=== PATIENT | male | born 1940 | race Caucasian/White ===

== ENCOUNTER → 2024-06-02 | Outpatient (CLI) | payer MEDICARE | END | disposition home or self-care (01) | LOC: LAB 12:55 | PROVIDERS: ATTEND Internal Medicine Cardiovascular Disease | DX: Z95.2 Presence of prosthetic heart valve (principal) | CPT/HCPCS: 36415; 87040 ==

== ENCOUNTER → 2024-08-21 | Outpatient (CLI) | payer MEDICARE ==
[2024-08-21 16:08] LABS: BASOPHILS # (AUTO) 0.03 K/uL (0.00-0.20); BASOPHILS % (AUTO) 0.8 % (0.0-5.0); EOSINOPHILS # (AUTO) 0.26 K/uL (0.00-0.70); HEMATOCRIT 27.6 % (42-54); IMMATURE GRANULOCYTE ABSOLUTE 0.01 K/uL (0-1); LYMPHOCYTES # (AUTO) 0.9 K/uL (1.0-4.8); LYMPHOCYTES % (AUTO) 24.8 % (21.0-51.0); MEAN CORPUSCULAR HEMOGLOBIN 33.9 pg (27.0-33.0); MEAN CORPUSCULAR HGB CONC 30.8 g/dL (32.0-36.0); MONOCYTES # (AUTO) 0.3 K/uL (0.1-1.0); MONOCYTES % (AUTO) 8.6 % (3.0-13.0); NEUTROPHILS # (AUTO) 2.2 K/uL (1.8-7.7); NEUTROPHILS % (AUTO) 58.5 % (40.0-77.0); PLATELET COUNT (AUTO) 171 K/uL (130-400); RED BLOOD CELL COUNT(AUTO) 2.51 MIL/uL (4.50-6.20); RED CELL DISTRIBUTION WIDTH 24.6 % (11.0-15.5); WHITE BLOOD COUNT (AUTO) 3.7 K/uL (4.8-10.8)
[2024-08-21 16:26] LABS: B-TYPE NATRIURETIC PEPTIDE 215 pg/mL (0-100)
[2024-08-21 16:27] LABS: POTASSIUM 4.2 mmol/L (3.5-5.1)
== END | disposition home or self-care (01) ==
LOC: LAB 13:02
PROVIDERS: ATTEND Internal Medicine Cardiovascular Disease
DX: Z01.812 Encounter for preprocedural laboratory examination (principal); Z95.2 Presence of prosthetic heart valve; Z95.0 Presence of cardiac pacemaker
CPT/HCPCS: 36415; 80048; 83880; 85025; 87040

== ENCOUNTER → 2024-11-01 | Outpatient (CLI) | payer MEDICARE ==
--- NOTE | 2024-11-03 13:36 | HMCSR ---
APPROVED REPORT Bilateral Lower Extremity Venous Study for DVT., Venous Competence. Indications Lower Extremity Pain: , Lower Extremity Edema: , i87.1,i87.2 Vein Imaging CFV (R): Pulsatile flow, augmentation and compression. No evidence of DVT. 19.7mm 0.0ms of reflux. SFJ (R): Pulsatile flow, augmentation and compression. No evidence of DVT. FEM (R): Pulsatile flow, augmentation and compression. No evidence of DVT. POP (R): Pulsatile flow, augmentation and compression. No evidence of DVT. DFV (R): Pulsatile flow, augmentation and compression. No evidence of DVT. PTV (R): Pulsatile flow, augmentation and compression. No evidence of DVT. Peroneals (R): Pulsatile flow, augmentation and compression. No evidence of DVT. CFV (L): Pulsatile flow, augmentation and compression. No evidence of DVT. 16.8mm 506ms of reflux. SFJ (L): Pulsatile flow, augmentation and compression. No evidence of DVT. FEM (L): Pulsatile flow, augmentation and compression. No evidence of DVT. POP (L): Pulsatile flow, augmentation and compression. No evidence of DVT. DFV (L): Pulsatile flow, augmentation and compression. No evidence of DVT. PTV (L): Pulsatile flow, augmentation and compression. No evidence of DVT. Peroneals (L): Pulsatile flow, augmentation and compression. No evidence of DVT. Technologist Impression Deep veins of the bilateral lower extremities appear patent and compressible without thrombus. Deep venous flow demonstrates pulsatile flow. Superficial venous insufficiency noted in the RGSV and LGSV. RGSV junction 13.6mm 778ms thigh 6.8mm 1533ms knee 3.8mm 0.0ms calf 4.0mm 1467ms RSSV prox 5.1mm 472ms mid 3.7mm 0.0ms LGSV junction 9.2mm 0.0ms thigh 4.4mm 978ms knee 4.1mm 1622ms calf 3.1mm 756ms LSSV prox 4.2mm 0.0ms mid 2.7mm 0.0ms Conclusion As above. Conclusion As above.
== END | disposition home or self-care (01) ==
LOC: SHCH 13:46 → MERGE 13:50
PROVIDERS: ATTEND Internal Medicine Cardiovascular Disease
DX: I87.2 Venous insufficiency (chronic) (peripheral) (principal); I87.1 Compression of vein
CPT/HCPCS: 93970

== ENCOUNTER → 2024-11-10 | Outpatient (CLI) | payer MEDICARE ==
[2024-11-10 12:14] LABS: BASOPHILS # (AUTO) 0.04 K/uL (0.00-0.20); BASOPHILS % (AUTO) 1.6 % (0.0-5.0); EOSINOPHILS # (AUTO) 0.26 K/uL (0.00-0.70); EOSINOPHILS % (AUTO) 10.2 % (0.0-8.0); HEMATOCRIT 24.8 % (42-54); LYMPHOCYTES % (AUTO) 38.6 % (21.0-51.0); MEAN CORPUSCULAR HEMOGLOBIN 33.9 pg (27.0-33.0); MEAN CORPUSCULAR VOLUME 109.3 fL (79-99); MONOCYTES # (AUTO) 0.2 K/uL (0.1-1.0); MONOCYTES % (AUTO) 8.3 % (3.0-13.0); NEUTROPHILS # (AUTO) 1.1 K/uL (1.8-7.7); NEUTROPHILS % (AUTO) 41.3 % (40.0-77.0); PLATELET COUNT (AUTO) 187 K/uL (130-400); RED BLOOD CELL COUNT(AUTO) 2.27 MIL/uL (4.50-6.20); WHITE BLOOD COUNT (AUTO) 2.5 K/uL (4.8-10.8)
[2024-11-10 12:42] LABS: CREATININE 1.1 mg/dL (0.5-1.3); POTASSIUM 4.1 mmol/L (3.5-5.1); THYROID STIMULATING HORMONE 2.93 uIU/mL (0.36-3.74)
[2024-11-10 12:58] LABS: B-TYPE NATRIURETIC PEPTIDE 242 pg/mL (0-100)
[2024-11-10 14:17] LABS: BAND NEUTROPHILS % (MANUAL) 15 % (0-2); EOSINOPHILS % (MANUAL) 9 % (1-6); LYMPHOCYTES % (MANUAL) 34 % (22-44); MAN.DIFF COMMENT-IMPRESSION MANUAL DIFFERENTIAL; MONOCYTES % (MANUAL) 11 % (2-9); SEGMENTED NEUTROPHILS % 31 % (40-70); TOTAL CELLS COUNTED 100
[2024-11-10 14:18] LABS: PLATELET MORPHOLOGY COMMENT ADEQUATE
== END | disposition home or self-care (01) ==
LOC: LAB 10:55
PROVIDERS: ATTEND Internal Medicine Cardiovascular Disease
DX: I10 Essential (primary) hypertension (principal); E55.9 Vitamin D deficiency, unspecified; R53.83 Other fatigue
CPT/HCPCS: 36415; 80048; 82306; 83880; 84443; 85025